=== PATIENT | female | born 1975 | race Caucasian/White ===

== ENCOUNTER 2024-05-11 09:03 | Outpatient (CLI) | payer BC ==
[~2024-05-11 09:03] MED LIST: NO HOME MEDS
== END 2024-05-11 23:59 | disposition home or self-care (01) ==
LOC: MRI02 09:03
PROVIDERS: ATTEND Family Medicine Sports Medicine
DX: M71.21 Synovial cyst of popliteal space [Baker], right knee (principal); M25.561 Pain in right knee; M23.205 Derangement of unspecified medial meniscus due to old tear or injury, unspecified knee; M25.461 Effusion, right knee
CPT/HCPCS: 73721